=== PATIENT | female | born 1985 | race Caucasian/White ===

== ENCOUNTER 2017-07-04 17:16 | Emergency (ER) | payer MEDICAID ==
[~2017-07-04] VITALS: Ht 165.1 cm; Wt 65.0 kg
[~2017-07-04 17:16] MED LIST: ERYT1O LEFT EYE; MIREIUD IU
[2017-07-04 17:18] VITALS: BP 144/72; PULSE 82; RESP 20; TEMP 97.8; O2SAT 98
[2017-07-04] MEDS ORDERED: SODIUM CHLORIDE 0.9% FLUSH 10 ML FLUSH IVF PRN (17:45)
[2017-07-04] MEDS ORDERED: SODIUM CHLORID 0.9% 500 ML INJ 500 ML IV ONE (17:45)
[2017-07-04 17:46] VITALS: RESP 18; O2SAT 97
[2017-07-04 17:47] VITALS: BP_SYST 116; BP_SYST 127; BP_DIAS 75; BP_DIAS 78; PULSE 81
[2017-07-04 17:58] LABS: AUTOMATED NEUTROPHIL # 3.8 TH/MM3 (1.8-7.7); BASOPHIL % 0.4 % (0.0-2.0); EOSINOPHIL % 0.7 % (0.0-4.0); HEMATOCRIT 41.7 % (35.0-46.0); HEMO FLAGS DIFF FINAL; LYMPH % 35.4 % (9.0-44.0); LYMPHOCYTE # 2.5 TH/MM3 (1.0-4.8); MEAN CORPUSCULAR HEMOGLOBIN 30.4 PG (27.0-34.0); MEAN CORPUSCULAR HGB CONC 34.5 % (32.0-36.0); MONO % 8.8 % (0.0-8.0); NEUT % 54.7 % (16.0-70.0); PLATELET COUNT 186 TH/MM3 (150-450); RED BLOOD COUNT 4.73 MIL/MM3 (4.00-5.30); RED CELL DISTRIBUTION WIDTH 12.9 % (11.6-17.2)
[2017-07-04 18:11] LABS: APTT (PATIENT) 30.4 SEC (24.3-30.1); PROTHROMBIN TIME - PATIENT 10.9 SEC (9.8-11.6)
[2017-07-04 18:18] LABS: ALT (GPT) 20 U/L (10-53); ANION GAP 8 MEQ/L (5-15); AST (GOT) 13 U/L (15-37); BICARBONATE 26.3 MEQ/L (21.0-32.0); BLOOD UREA NITROGEN 10 MG/DL (7-18); CHLORIDE 103 MEQ/L (98-107); GLOMERULAR FILTRATION RATE 106 ML/MIN (>89); MAGNESIUM 1.8 MG/DL (1.5-2.5); POTASSIUM 3.4 MEQ/L (3.5-5.1); SODIUM (NA) 137 MEQ/L (136-145)
--- NOTE | 2017-07-04 18:20 | RADRPT ---
EXAM DATE/TIME: 07/04/2017 18:02 [facility] COMPARISON: No previous studies available for comparison. INDICATIONS : Chest pain. MEDICAL HISTORY : None. SURGICAL HISTORY : None. ENCOUNTER: Initial ACUITY: 4 - 6 days PAIN SCORE: 5/10 LOCATION: Bilateral chest FINDINGS: A single view of the chest demonstrates the lungs to be symmetrically aerated without evidence of mas s, infiltrate or effusion. The cardiomediastinal contours are unremarkable. Osseous structures are intact. CONCLUSION: No acute disease. Octavio Lopez MD on July 04, 2017 at 18:18 Board Certified Radiologist. This report was verified electronically.
[2017-07-04 18:22] LABS: ALKALINE PHOSPHATASE 94 U/L (45-117); TOTAL BILIRUBIN ADULT 0.4 MG/DL (0.2-1.0)
--- NOTE | 2017-07-04 18:23 | PD ---
HPI Chief Complaint: Respiratory Distress Time Seen by Provider: 17:50 Travel History International Travel<30 days: No Contact w/Intl Traveler<30days: No Traveled to known affect area: No History of Present Illness HPI Patient is a 32-year-old female presenting to emergency for evaluation of chest pain. Patient states this started 2 days ago, it is midsternal, over one specific point of her chest wall. She states it's painful when she touches it. The pain has been intermittent, [facility] and was diagnosed with bradycardia per her report. She denies any nausea, vomiting, abdominal pain, fever, chills, headache. She reports that her arms and legs feel heavy sometimes when she drinks water it feels better and then it starts up again. She reports a history of gastritis. She denies any drug use or alcohol use. She states pain is a 5 out of 10, there are no alleviating or exacerbating factors. PFSH Past Medical History Diminished Hearing: No Gastrointestinal Disorders: Yes (gastritis) ?: Not : 2 Para: 2 Miscarriage: 0 : 0 Past Surgical History Section: Yes (X2) Social History Alcohol Use: Yes (SOCIALLY) Tobacco Use: Yes (< PPD) Substance Use: No Allergies-Medications (Allergen,Severity, Reaction): Coded Allergies: No Known Allergies (Verified Allergy, Unknown, 07/04/17) Reported Meds & Prescriptions Reported Meds & Active Scripts Active Review of Systems Except as stated in HPI: all other systems reviewed are Neg Cardiovascular: Positive: Chest Pain or Discomfort Respiratory: Positive: Pleuritic Pain Musculoskeletal: Positive: Myalgias Physical Exam Narrative GENERAL: Well-developed, well-nourished, well-appearing female. Resting comfortably in no acute distress. SKIN: Warm and dry. HEAD: Atraumatic. Normocephalic. EYES: Pupils equal and round. No scleral icterus. No injection or drainage. ENT: No nasal bleeding or discharge. Mucous membranes pink and moist. NECK: Trachea midline. No JVD. CARDIOVASCULAR: Regular rate and rhythm. RESPIRATORY: No accessory muscle use. Clear to auscultation. Breath sounds equal bilaterally. GASTROINTESTINAL: Abdomen soft, non-tender, nondistended. Hepatic and splenic margins not palpable. MUSCULOSKELETAL: Extremities without clubbing, cyanosis, or edema. No obvious deformities. NEUROLOGICAL: Awake and alert. No obvious cranial nerve deficits. Motor grossly within normal limits. Five out of 5 muscle strength in the arms and legs. Normal speech. PSYCHIATRIC: Appropriate mood and affect; insight and judgment normal. Data Data Last Documented VS Vital Signs Date Time Temp Pulse Resp B/P (MAP) Pulse Ox O2 Delivery O2 Flow Rate FiO2 07/04/17 20:02 63 20 121/61 (81) 100 Room Air 07/04/17 17:18 97.8 Orders Orders Electrocardiogram (07/04/17 17:41) Ckmb (Isoenzyme) Profile (07/04/17 17:41) Complete Blood Count With Diff (07/04/17 17:41) Comprehensive Metabolic Panel (07/04/17 17:41) D-Dimer (07/04/17 17:41) Magnesium (Mg) (07/04/17 17:41) Prothrombin Time / Inr (Pt) (07/04/17 17:41) Act Partial Throm Time (Ptt) (07/04/17 17:41) Troponin I (07/04/17 17:41) Chest, Single Ap (07/04/17 17:41) Ecg Monitoring (07/04/17 17:41) Bilateral Bp Monitoring (07/04/17 17:41) Iv Access Insert/Monitor (07/04/17 17:41) Oximetry (07/04/17 17:41) Oxygen Administration (07/04/17 17:41) Sodium Chloride 0.9% Flush (Ns Flush) (07/04/17 17:45) Sodium Chlorid 0.9% 500 Ml Inj (Ns 500 M (07/04/17 17:45) Drug Screen, Random Urine (07/04/17 17:41) Ed Urine Pregnancytest Poc (07/04/17 17:41) Ct Pulmonary Angiogram (07/04/17 ) Iohexol 350 Inj (Omnipaque 350 Inj) (07/04/17 20:42) Potassium Chloride (Kcl) (07/04/17 21:30) Ketorolac Inj (Toradol Inj) (07/04/17 21:30) Ed Discharge Order (07/04/17 22:21) Labs Laboratory Tests Test 07/04/17 17:50 White Blood Count 7.0 TH/MM3 Red Blood Count 4.73 MIL/MM3 Hemoglobin 14.4 GM/DL Hematocrit 41.7 % Mean Corpuscular Volume 88.0 FL Mean Corpuscular Hemoglobin 30.4 PG Mean Corpuscular Hemoglobin Concent 34.5 % Red Cell Distribution Width 12.9 % Platelet Count 186 TH/MM3 Mean Platelet Volume 8.1 FL Neutrophils (%) (Auto) 54.7 % Lymphocytes (%) (Auto) 35.4 % Monocytes (%) (Auto) 8.8 % Eosinophils (%) (Auto) 0.7 % Basophils (%) (Auto) 0.4 % Neutrophils # (Auto) 3.8 TH/MM3 Lymphocytes # (Auto) 2.5 TH/MM3 Monocytes # (Auto) 0.6 TH/MM3 Eosinophils # (Auto) 0.0 TH/MM3 Basophils # (Auto) 0.0 TH/MM3 CBC Comment DIFF FINAL Differential Comment Prothrombin Time 10.9 SEC Prothromb Time International Ratio 1.0 RATIO Activated Partial Thromboplast Time 30.4 SEC D-Dimer Quantitative (PE/DVT) 0.98 MG/L FEU Blood Urea Nitrogen 10 MG/DL Creatinine 0.65 MG/DL Random Glucose 85 MG/DL Total Protein 8.0 GM/DL Albumin 4.6 GM/DL Calcium Level 9.0 MG/DL Magnesium Level 1.8 MG/DL Alkaline Phosphatase 94 U/L Aspartate Amino Transf (AST/SGOT) 13 U/L Alanine Aminotransferase (ALT/SGPT) 20 U/L Total Bilirubin 0.4 MG/DL Sodium Level 137 MEQ/L Potassium Level 3.4 MEQ/L Chloride Level 103 MEQ/L Carbon Dioxide Level 26.3 MEQ/L Anion Gap 8 MEQ/L Estimat Glomerular Filtration Rate 106 ML/MIN Total Creatine Kinase 56 U/L Troponin I LESS THAN 0.02 NG/ML Urine Opiates Screen NEG Urine Barbiturates Screen NEG Urine Amphetamines Screen NEG Urine Benzodiazepines Screen NEG Urine Cocaine Screen NEG Urine Cannabinoids Screen NEG MDM Medical Decision Making Medical Screen Exam Complete: Yes Emergency Medical Condition: Yes Interpretation(s) Vital Signs Date Time Temp Pulse Resp B/P (MAP) Pulse Ox O2 Delivery O2 Flow Rate FiO2 07/04/17 20:02 63 20 121/61 (81) 100 Room Air 07/04/17 17:47 81 127/75 (92) 116/78 (91) 07/04/17 17:46 98 Room Air 07/04/17 17:46 18 97 Room Air 07/04/17 17:35 70 18 99 Room Air 07/04/17 17:18 97.8 82 20 144/72 (96) 98 Room Air Laboratory Tests Test 07/04/17 17:50 White Blood Count 7.0 TH/MM3 Red Blood Count 4.73 MIL/MM3 Hemoglobin 14.4 GM/DL Hematocrit 41.7 % Mean Corpuscular Volume 88.0 FL Mean Corpuscular Hemoglobin 30.4 PG Mean Corpuscular Hemoglobin Concent 34.5 % Red Cell Distribution Width 12.9 % Platelet Count 186 TH/MM3 Mean Platelet Volume 8.1 FL Neutrophils (%) (Auto) 54.7 % Lymphocytes (%) (Auto) 35.4 % Monocytes (%) (Auto) 8.8 % Eosinophils (%) (Auto) 0.7 % Basophils (%) (Auto) 0.4 % Neutrophils # (Auto) 3.8 TH/MM3 Lymphocytes # (Auto) 2.5 TH/MM3 Monocytes # (Auto) 0.6 TH/MM3 Eosinophils # (Auto) 0.0 TH/MM3 Basophils # (Auto) 0.0 TH/MM3 CBC Comment DIFF FINAL Differential Comment Prothrombin Time 10.9 SEC Prothromb Time International Ratio 1.0 RATIO Activated Partial Thromboplast Time 30.4 SEC D-Dimer Quantitative (PE/DVT) 0.98 MG/L FEU Blood Urea Nitrogen 10 MG/DL Creatinine 0.65 MG/DL Random Glucose 85 MG/DL Total Protein 8.0 GM/DL Albumin 4.6 GM/DL Calcium Level 9.0 MG/DL Magnesium Level 1.8 MG/DL Alkaline Phosphatase 94 U/L Aspartate Amino Transf (AST/SGOT) 13 U/L Alanine Aminotransferase (ALT/SGPT) 20 U/L Total Bilirubin 0.4 MG/DL Sodium Level 137 MEQ/L Potassium Level 3.4 MEQ/L Chloride Level 103 MEQ/L Carbon Dioxide Level 26.3 MEQ/L Anion Gap 8 MEQ/L Estimat Glomerular Filtration Rate 106 ML/MIN Total Creatine Kinase 56 U/L Troponin I LESS THAN 0.02 NG/ML Urine Opiates Screen NEG Urine Barbiturates Screen NEG Urine Amphetamines Screen NEG Urine Benzodiazepines Screen NEG Urine Cocaine Screen NEG Urine Cannabinoids Screen NEG Last Impressions Chest X-Ray 07/04/17 1441 Signed Impressions: Service Date/Time: June 18:02 - CONCLUSION: No acute disease. Octavio Lopez MD CT Angiography 07/04/17 0000 Signed Impressions: Service Date/Time: June 20:32 - CONCLUSION: Normal examination for a patient of this age. Octavio Lopez MD Differential Diagnosis Pleurisy versus atypical chest pain versus ACS versus metabolic abnormality versus other Narrative Course Patient is a 32-year-old female that presented to emergency for evaluation of chest pain. She states it is stable, she appears well. Patient reported that she went to [facility] 2 days ago with the same complaint. Medical records were obtained and it appears she presented there with a chief complaint of weakness that started just prior to arrival. A CBC, BMP, thyroid, urinalysis was performed. She also had an abdominal x-ray which shows no acute disease. Patient was diagnosed with weakness and discharged home. Labs and imaging were ordered and pending. EKG shows sinus rhythm with possible left atrial enlargement, possible right ventricular conduction delay. Ventricular rate is 66. CBC with no acute abnormalities Chemistry with a potassium of 3.4 Cardiac enzymes are negative 1 set Urine drug screen is negative D-dimer is elevated at 0.98, CT pulmonary angiogram ordered and pending. Patient is resting comfortably, significant other at bedside. Vital signs remain stable. CT pulmonary angiogram is normal. Patient was given dose of Toradol for pleuritic pain. Potassium was corrected with oral replacement. Patient was reassured that there were no acute findings at this time. She was encouraged to follow-up with a primary doctor. She was further encouraged to return to emergency department immediately for any new or worsening symptoms. Patient was also reassured that medical records were reviewed from [facility] and there were no acute findings at that time either. Patient verbalized understanding of discharge instructions. Patient stable for discharge. Patient will be provided with a prescription for indomethacin. She was also given information regarding the [facility]. Diagnosis Primary Impression: Pleuritic chest pain Referrals: [facility] 1 week Call to make an appointment to establish care Patient Instructions: General Instructions, Pleurisy (ED) Additional Instructions: Follow-up with a primary doctor or at the [facility] Return to emergency department immediately for any new or worsening symptoms Maintain a healthy diet Maintain adequate fluid intake Maintain good sleep habits Med/Other Pt SpecificInfo: Prescription(s) given Scripts Indomethacin (Indomethacin) 50 Mg Cap 50 MG PO TID, #30 CAP 0 Refills Take with food, milk, or antacids to decrease stomach adverse effects. Prov: Aleida Miller 07/04/17 Disposition: 01 DISCHARGE HOME Condition: Stable Aleida Miller Jul 04, 2017 18:23
[2017-07-04 18:26] LABS: CREATINE KINASE 56 U/L (26-192)
[2017-07-04 20:02] VITALS: BP 121/61; PULSE 63; RESP 20; O2SAT 100
[2017-07-04] MEDS ORDERED: IOHEXOL 350 MG/ML 10 ML VIAL (for RAD DIAG) IVCONTRAST ONE (20:42)
--- NOTE | 2017-07-04 21:01 | RADRPT ---
EXAM DATE/TIME: 07/04/2017 20:32 [facility] COMPARISON: No previous studies available for comparison. INDICATIONS : Chest pains. IV CONTRAST: 65 cc Omnipaque 350 (iohexol) IV RADIATION DOSE: 7.25 CTDIvol (mGy) MEDICAL HISTORY : None SURGICAL HISTORY : None. ENCOUNTER: Initial ACUITY: 2 days PAIN SCALE: 4/10 LOCATION: Bilateral chest TECHNIQUE: Volumetric scanning of the chest was performed using a pulmonary embolism protocol MIP images were re constructed. Using automated exposure control and adjustment of the mA and/or kV according to patien t size, radiation dose was kept as low as reasonably achievable to obtain optimal diagnostic quality images. DICOM format image data is available electronically for review and comparison. Follow-up recommendations for detected pulmonary nodules are based at a minimum on nodule size and pa tient risk factors according to Fleischner Society Guidelines. FINDINGS: PULMONARY ARTERIES: No filling defects are seen in the pulmonary arteries through the segmental level. LUNGS: There is no consolidation or pneumothorax . No concerning pulmonary nodule is visualized. PLEURAE: There is no pleural thickening or pleural effusion. MEDIASTINUM: There is good visualization of the great vessels of the middle mediastinum. No evidence of mediastin al or hilar adenopathy/mass. MUSCULOSKELETAL: Within normal limits for patient age. MISCELLANEOUS: The visualized upper abdominal organs demonstrate no acute abnormality. CONCLUSION: Normal examination for a patient of this age. Octavio Lopez MD on July 04, 2017 at 20:57 Board Certified Radiologist. This report was verified electronically.
[2017-07-04] MEDS ORDERED: KETOROLAC TROMETHAMINE 30 MG/ML (IVP) VIAL IV PUSH ONE (21:30)
[2017-07-04] MEDS ORDERED: POTASSIUM CHLORIDE 10 MEQ CONTROLLED RELEASE TAB PO ONE (21:30)
[2017-07-04] MEDS ORDERED: INDO50CA PO (22:25)
--- NOTE | 2017-07-05 15:12 | EKG ---
Date Performed: 07/04/2017 Time Performed: 17:41:59 PTAGE: 32 years EKG: Sinus rhythm POSSIBLE LEFT ATRIAL ENLARGEMENT POSSIBLE RIGHT VENTRICULAR CONDUCTION DELAY Since previous tracing, no significant change noted BORDERLINE ECG PREVIOUS TRACING : 12/26/2016 16.35.36 DOCTOR: Joe Reyes Interpretating Date/Time 07/05/2017 15:10:15
== END 2017-07-04 22:49 | disposition home or self-care (01) ==
LOC: NEPC 17:16
DX: R07.89 Other chest pain (principal); M79.1 Myalgia; F17.200 Nicotine dependence, unspecified, uncomplicated
CPT/HCPCS: 71010; 71275; 80053; 80307; 82550; 83735; 84484; 84703; 85025; 85379; 85610; 85730; 93005; 96361; 96374; 99285; J1885; J7040; Q9967